=== PATIENT | female | born 1990 | race Caucasian/White ===

== ENCOUNTER 2019-03-20 14:54 | Emergency (ER) | payer OTHER ==
[~2019-03-20] VITALS: Ht 167.6 cm; Wt 74.7 kg
[~2019-03-20 14:54] MED LIST: DOXY100T21 PO
[2019-03-20 15:00] VITALS: BP 113/71; PULSE 77; RESP 16; Ht 167.6 cm; Wt 74.7 kg
--- NOTE | 2019-03-20 15:18 | ERD ---
ER Documentation Chief Complaint Chief Complaint CAT SCRATCH ACROSS UPPER LIP HPI 28-year-old female presents with a scratch across the upper lip today by her own cat. Tetanus is up-to-date. She has no active bleeding. ROS All systems reviewed and are negative except as per history of present illness. Medications Home Meds Active Scripts Doxycycline Monohydrate* (Doxycycline Monohydrate*) 100 Mg Tablet, 100 MG PO BID for 7 Days, TAB Prov:RAQUEL GARCIA MD 03/20/19 FmHx Family History: No diabetes, No coronary disease, No other Physical Exam Vitals Vital Signs Date Temp Pulse Resp B/P (MAP) Pulse Ox O2 O2 Flow FiO2 Time Delivery Rate 03/20/19 98.9 77 16 113/71 98 15:00 (85) Physical Exam Const: No acute distress Head: Atraumatic Eyes: Normal Conjunctiva ENT: Normal External Ears, Nose and Mouth. Upper lip with approximately 2 cm superficial scratch. Barely penetrates to the vermilion border. It is spontaneously closed to less than 1 mm in diameter. Neck: Full range of motion. No meningismus. Resp: Clear to auscultation bilaterally Cardio: Regular rate and rhythm, no murmurs Abd: Soft, non tender, non distended. Normal bowel sounds Skin: No petechiae or rashes Back: No midline or flank tenderness Ext: No cyanosis, or edema Neur: Awake and alert Psych: Normal Mood and Affect Procedures/MDM Patient presents with a cat scratch across the upper lip. It is irrigated with soap and water at home. Discussion was had with patient regarding avoidance of sutures and animal bites and scratches although wound is well approximated and does not appear to need stitches anyway. There is barely involvement of the vermilion border. Patient was counseled on scar prevention via prevention of sun and use of sunscreen. Patient will be treated with doxycycline given her penicillin allergy, recommend agents for primary care follow-up and return precautions for redness, fevers, new or worsening symptoms. There is no current signs of infection, additional complications. Departure Diagnosis: Primary Impression: Cat bite Encounter type: initial encounter Qualified Codes: W55.01XA - Bitten by cat, initial encounter Additional Impression: Scratch keli Condition: Stable Patient Instructions: Cat Bite, Laceration, How To Minimize Scar, Cat Bite Or Scratch (Child) Additional Instructions: Recommend avoidance of sun for prevention of scar. Recheck for redness, swelling, fevers, new worsening symptoms. RAQUEL GARCIA MD Mar 20, 2019 15:18
== END 2019-03-20 15:21 | disposition home or self-care (01) ==
LOC: FTE 14:54 → E/R 15:21
DX: S00.511A Abrasion of lip, initial encounter (principal); W55.03XA Scratched by cat, initial encounter; Y92.9 Unspecified place or not applicable
CPT/HCPCS: 99283